=== PATIENT | female | born 1970 | race American Indian/Alaskan Native ===

== ENCOUNTER 2017-10-18 09:47 | Emergency (ER) | payer BC ==
[2017-10-18 10:52] LABS: BUN/Creatinine Ratio 7; Blood Urea Nitrogen 6 mg/dL (7-17); Calcium 8.9 mg/dL (8.4-10.2); Hemolysis Index 0
[2017-10-18 10:59] LABS: Basophils % (Auto) 0.3 % (0.0-1.8); Eosinophils % (Auto) 1.1 % (0.0-4.3); Hemoglobin 11.8 gm/dl (10.1-14.3); Lymphocytes # (Auto) 1.5 K/mm3 (1.2-5.4); Lymphocytes % (Auto) 25.9 % (13.4-35.0); Mean Corpuscular HGB Conc 32 % (30-34); Mean Corpuscular Hemoglobin 27 pg (28-32); Mean Corpuscular Volume 83 fl (79-97); Monocytes # (Auto) 0.6 K/mm3 (0.0-0.8); Monocytes % (Auto) 9.8 % (0.0-7.3); Platelet Count 252 K/mm3 (140-440); Red Blood Count 4.44 M/mm3 (3.65-5.03); Red Cell Distribution Width 14.7 % (13.2-15.2)
[2017-10-18 11:00] LABS: Eosinophils # (Auto) 0.1 K/mm3 (0.0-0.4)
[2017-10-18 11:21] VITALS: BP 157/99
--- NOTE | 2017-10-18 11:52 | Emergency Department Report ---
ED Shortness of Breath HPI - General Chief Complaint: Dyspnea/Respdistress Stated Complaint: SWELLING IN BOTH LEGS Time Seen by Provider: 10/18/17 11:18 Source: patient Mode of arrival: Ambulatory Limitations: No Limitations - History of Present Illness Initial Comments: This is a 46-year-old -[place] female who presents with bilateral lower extremity swelling for 2 days. Past medical history of hypertension. Patient states she went to work night and around 2:00 AM she noticed her leg began to swell. Patient states she went home and took a shower and woke later on Thursday morning E afternoon and noticed swelling and increased and it was painful to walk up stairs. Patient states she is also having some shortness of breath when walking up stairs. Patient denies chest pain or shortness of breath at rest. She also states she has been off hydrochlorothiazide for 2 weeks. She has not had time to follow-up with primary care provider for refills. MD Complaint: shortness of breath Onset/Timin -: days(s) Severity: mild Pain Scale: 0 Consistency: intermittent Improves With: rest Worsens With: exertion Context: occured during exertion Associated Symptoms: other (bilateral lower extremity swelling) Treatments Prior to Arrival: none - Related Data Home Oxygen Therapy: No Previous Rx's Medication Instructions Recorded Last Taken Type hydroCHLOROthiazide [HCTZ] 25 mg PO QDAY #30 tablet 10/18/17 Unknown Rx Allergies Allergy/AdvReac Type Severity Reaction Status Date / Time No Known Allergies Allergy Unverified 10/18/17 09:52 ED Review of Systems ROS: Stated complaint: SWELLING IN BOTH LEGS Other details as noted in HPI Constitutional: denies: chills, fever Respiratory: SOB with exertion. denies: cough, shortness of breath, wheezing Cardiovascular: edema. denies: chest pain, palpitations, syncope Gastrointestinal: denies: abdominal pain, nausea, vomiting, diarrhea Skin: denies: rash, lesions Neurological: denies: headache, weakness, paresthesias Psychiatric: denies: anxiety, depression ED Past Medical Hx - Past Medical History Hx Hypertension: Yes - Surgical History Past Surgical History?: No - Social History Smoking Status: Never Smoker Substance Use Type: None - Medications Home Medications: Home Medications Medication Instructions Recorded Confirmed Last Taken Type hydroCHLOROthiazide [HCTZ] 25 mg PO QDAY #30 tablet 10/18/17 Unknown Rx ED Physical Exam - General Limitations: No Limitations General appearance: alert, in no apparent distress, obese (morbidly obese) - Respiratory Respiratory exam: Present: normal lung sounds bilaterally. Absent: respiratory distress - Cardiovascular Cardiovascular Exam: Present: regular rate, normal rhythm, normal heart sounds. Absent: systolic murmur, diastolic murmur, rubs, gallop - GI/Abdominal GI/Abdominal exam: Present: soft, normal bowel sounds. Absent: distended, tenderness, guarding, rebound, rigid, organomegaly, mass - Extremities Exam Extremities exam: Present: full ROM, normal capillary refill, pedal edema ( bilateral pedal edema). Absent: tenderness, joint swelling, calf tenderness - Neurological Exam Neurological exam: Present: alert, oriented X3, normal gait - Psychiatric Psychiatric exam: Present: normal affect, normal mood - Skin Skin exam: Present: warm, dry, intact, normal color. Absent: rash ED Course Vital Signs 10/18/17 10/18/17 09:53 11:20 Temperature 98.6 F 98.1 F Pulse Rate 95 H 86 Respiratory 22 20 Rate Blood Pressure 183/96 Blood Pressure 157/99 [Left] O2 Sat by Pulse 100 99 Oximetry ED Medical Decision Making - Lab Data Result diagrams: 10/18/17 10:15 10/18/17 10:15 Lab Results 10/18/17 10/18/17 10/18/17 Range/Units 10:15 10:15 10:15 WBC 5.8 (4.5-11.0) K/mm3 RBC 4.44 (3.65-5.03) M/mm3 Hgb 11.8 (10.1-14.3) gm/dl Hct 37.0 (30.3-42.9) % MCV 83 (79-97) fl MCH 27 L (28-32) pg MCHC 32 (30-34) % RDW 14.7 (13.2-15.2) % Plt Count 252 (140-440) K/mm3 Lymph % (Auto) 25.9 (13.4-35.0) % Turner % (Auto) 9.8 H (0.0-7.3) % Eos % (Auto) 1.1 (0.0-4.3) % Baso % (Auto) 0.3 (0.0-1.8) % Lymph # 1.5 (1.2-5.4) K/mm3 Turner # 0.6 (0.0-0.8) K/mm3 Eos # 0.1 (0.0-0.4) K/mm3 Baso # 0.0 (0.0-0.1) K/mm3 Seg Neutrophils % 62.9 (40.0-70.0) % Seg Neutrophils # 3.7 (1.8-7.7) K/mm3 Sodium 138 (137-145) mmol/L Potassium 3.8 (3.6-5.0) mmol/L Chloride 102.8 (98-107) mmol/L Carbon Dioxide 23 (22-30) mmol/L Anion Gap 16 mmol/L BUN 6 L (7-17) mg/dL Creatinine 0.9 (0.7-1.2) mg/dL Estimated GFR > 60 ml/min BUN/Creatinine Ratio 7 % Glucose 93 (65-100) mg/dL Calcium 8.9 (8.4-10.2) mg/dL Troponin T < 0.010 (0.00-0.029) ng/mL NT-Pro-B Natriuret Pep 151.6 (0-450) pg/mL HCG, Qual Negative (Negative) - Medical Decision Making Patient is stable and was examined by me. I obtained labs and chest x-ray. All labs are unremarkable and EKG normal sinus rhythm. No warmth or pain on evaluation for suspicion of DVT. Refilled HCTZ 25 mg po daily and follow up with PCP at [facility] in 1 week. Discussed plan with patient and agreed to plan. No further questions noted by the patient. Discharged home in stable condition. Critical care attestation.: If time is entered above; I have spent that time in minutes in the direct care of this critically ill patient, excluding procedure time. ED Disposition Clinical Impression: Dependent edema Hypertension Qualifiers: Hypertension type: essential hypertension Qualified Code(s): I10 - Essential ( primary) hypertension Disposition: TO HOME OR SELFCARE Is pt being admited?: No Does the pt Need Aspirin: No Condition: Stable Instructions: Hypertension (ED), Leg Edema (ED) Additional Instructions: Encourage stop smoking to reduce cardiovascular risk. Moderate caffeine consumption is acceptable. Begin and maintain aerobic exercise, with a goal of at least 30 minutes of moderate intensity, dynamic aerobic exercise (walking, jogging, cycling, or swimming) 5 days per week to total 150 minutes as tolerated or recommended by a physician. Take medication daily as prescribed. Follow up with Primary Care Provider in 1 week. Prescriptions: hydroCHLOROthiazide [HCTZ] 25 mg PO QDAY #30 tablet Referrals: [facility] [Other] - 3-5 Days Time of Disposition: 12:56 Print Language: INDIAN
--- NOTE | 2017-10-18 17:45 | XRay Report ---
FINAL REPORT EXAM: XR CHEST ROUTINE 2V HISTORY: Shortness of breath TECHNIQUE: PA and lateral views of the chest PRIORS: None. FINDINGS: Lines, tubes, and devices: N/A Lungs and pleura: Trachea is normal in position. Lungs are clear of infiltrate, pleural effusion, vascular congestion, or pneumothorax. Cardiomediastinal silhouette: Cardiac and mediastinal silhouettes are unremarkable. Other: Bony structures are intact. IMPRESSION: No acute cardiopulmonary process seen.
== END 2017-10-18 13:10 | disposition home or self-care (01) ==
LOC: ED 09:47
DX: I10 Essential (primary) hypertension (principal); R60.9 Edema, unspecified
CPT/HCPCS: 36415; 71046; 80048; 83880; 84484; 84703; 85025; 93005; 93010; 99283